=== PATIENT | male | born 1990 | race Caucasian/White ===

== ENCOUNTER 2022-08-01 23:48 | Emergency (ER) | payer BC, OTHER, SELFPAY ==
[2022-08-01 23:49] VITALS: BP 144/91; PULSE 88; RESP 18; TEMP 36.6; O2SAT 100; BMI 28.6
--- NOTE | 2022-08-02 00:17 | EKG12_ITS ---
Test Reason : DYSRHYTHMIA Blood Pressure : / mmHG Vent. Rate : 070 BPM Atrial Rate : 070 BPM P-R Int : 138 ms QRS Dur : 092 ms QT Int : 360 ms P-R-T Axes : 044 033 039 degrees QTc Int : 388 ms Normal sinus rhythm Normal ECG Confirmed by KARLENE CHANEY, ANDRE ([id number]), editor continuity and script KATE ARRIETA ([id number]) on 08/02/2022 9:11:30 AM Referred By: TL Confirmed By:ANDRE SOLER MD
--- NOTE | 2022-08-02 00:18 | EX.ED.DYSGE1 ---
HPI History of Present Illness Chief Complaint: General Illness Informant: patient and spouse/S.O. Narrative Narrative: Presents ED for evaluation not feeling well. Less than 4 hours get ready bed he felt chills and shaky he laid down felt lightheaded and nauseated. He felt better standing up. No urinary symptoms no cough. Nonvaccinated COVID or influenza. States 3 weeks ago home tests COVID. He did start out with chills and developed myalgias congestion all his symptoms lasted 4 days. Denies any current nausea. Denies vomiting or diarrhea. Prior similar symptoms: Yes PFSH PFSH Medical History no medical history Home Medications ondansetron 4 mg disintegrating tablet 4 mg PO Q8H PRN PRN Nausea #10 tabs 08/02/22 [Rx Last Taken Unknown] Allergy/AdvReac Type Severity Reaction Status Date / Time No Known Allergies Allergy Verified 08/01/22 23:51 Social History Smoking Status: Smoker, status unknown tobacco type: smokeless tobacco ROS ROS ED Constitutional Constitutional ED: Denies chills, fever(s) or sweats Eyes Eyes: Denies change in vision ENT ENT ED: Denies dysphagia or sore throat Cardiovascular Cardiovascular: Denies chest pain, leg edema, palpitations or racing heartbeat Respiratory/Chest Respiratory/Chest: Denies cough, dyspnea or dyspnea on exertion Gastrointestinal Gastrointestinal: Denies abdominal pain, diarrhea, nausea or vomiting Genitourinary Genitourinary ED: Denies dysuria, hematuria or urinary frequency Musculoskeletal Musculoskeletal: Denies back pain, extremity pain or neck pain Integumentary Denies rash or wounds Neurologic Neurologic: Denies headache(s), paresthesias or weakness EXAM Physical Exam Const Vital Signs: 08/01/22 23:49 08/01/22 23:57 Temperature 97.9 F Temperature Source Temporal Pulse Rate 88 Respiratory Rate 18 Respiratory Effort Normal Respiratory Pattern Normal Blood Pressure 144/91 H Blood Pressure Mean 108 Pulse Ox 100 Oxygen Delivery Method Room Air Positive well nourished and well developed General Appearance ED: well developed and NAD HEENT Reports moist mucous membranes normocephalic and atraumatic Eyes PERRL, EOMs intact bilaterally and conjunctivae normal General Eye ED: Yes normal appearance of both eyes Neck no lymphadenopathy and supple General: Negative for tenderness Chest Wall Chest: Negative for tenderness Resp normal respiratory effort and normal air movement Effort and Inspection: symmetric chest movement; Negative for respiratory distress Cardio regular rate, regular rhythm and no murmurs Peripheral Pulses: pulses 2+ throughout GI normal to inspection, nondistended, normoactive bowel sounds and non-tender Palpation: Negative for guarding or rebound tenderness present Back/Spine no CVA tenderness and no thoracic nor lumbar tenderness Extremity normal to inspection General Extremety ED: Negative for edema or tenderness General Extremity: Negative for edema Neuro oriented x3 and no sensory deficits noted Sensorium / Orientation: awake and alert Skin no rashes or lesions noted and no wounds MDM MDM MDM Narrative Medical decision making narrative: Interventions / MDM: Differential diagnosis: Dysrhythmia, viral syndrome, electrolyte abnormalities, anemia Diagnosis considered but do not suspect: N/A My EKG interpretation: Sinus rate of 70, no ST or T wave changes QTc 388. Imaging independently reviewed and interpreted by myself: N/A External documents reviewed: N/A Test considered but not ordered:N/A ED course: Patient vital stable currently asymptomatic. Symptoms of chills started 4 hours ago. Discussed with patient possibly COVID 3 weeks ago could have resurgent of symptoms also could be influenza. Discussed and offered retesting however could have persistent positive test. He understands this and declines retesting at this time. As for his near syncope discussed ruling out any cardiac dysrhythmia and electrolyte abnormalities versus anemia. He would like this. EKG obtained sinus rhythm no acute changes. Laboratory studies ordered. 0044: CBC is normal, hemoglobin 15.5. White count 9.8. Platelets 247. Normal electrolytes normal creatinine. Re-evaluation: stable, updated on findings. Outpatient follow-up with return precautions. All questions were answered. Disposition discussed with patient/family/significant other: Patient and significant other Case discussed with consulting clinician: N/A Lab Data Attestation: I reviewed the patient's lab results. Labs: Laboratory Results - last 24 hr 08/02/22 08/02/22 00:25 00:25 WBC 9.8 RBC 5.38 Hgb 15.5 Hct 45.4 MCV 84.4 MCH 28.8 MCHC 34.1 RDW Std Deviation 35.2 RDW Coeff of Shreyas 11.6 Plt Count 247 MPV 9.9 Immature Gran % (Auto) 0.400 Neut % (Auto) 81.0 H Lymph % (Auto) 10.0 L [place] % (Auto) 7.8 Eos % (Auto) 0.5 Baso % (Auto) 0.3 Absolute Neuts (auto) 7.9 H Absolute Lymphs (auto) 0.98 Nucleated RBC % 0 Sodium 138 Potassium 3.9 Chloride 103 Carbon Dioxide 29.0 Anion Gap 6 BUN 11 Creatinine 1.20 Estim Creat Clear Calc 95.00 Est GFR (MDRD) Af Amer 90 Est GFR (MDRD) Non-Af 75 BUN/Creatinine Ratio 9.2 L Glucose 132 H Calcium 9.2 Discharge Plan Triage Chief Complaint: General Illness ED Provider: Abhinav Aquino Dx/Rx/DC Orders Clinical Impression: Near syncope, Acute viral syndrome Instructions: ED Near-Fainting, Uncertain Cause, ED Viral Syndrome (Adult) Prescriptions: New ondansetron [ondansetron] 4 mg tablet,disintegrating 4 mg PO Q8H PRN PRN (Reason: Nausea) Qty: 10 0RF Stand Alone Forms: ED Work / School Excuse Primary Care Provider: Care Physician,No Primary Referrals: Tung Cade MD [Non-Staff] - 3-5 Days if not improving Activity Restrictions/Additional Instructions: Normal EKG, normal labs. Monitor symptoms. Continue oral fluids Zofran as needed. Follow-up with your doctor. Return if worsening symptoms. Disposition Disposition: Home, Self Care
[2022-08-02 00:32] LABS: Absolute Lymphocyte Count 0.98 X10^3/uL (0.83-4.51); Absolute Neutrophil Count 7.9 X10^3/uL (2.0-7.7); Basophil# 0.03 X10^3/uL; Basophil% 0.3 % (0-1); Eosinophil# 0.05 X10^3/uL; Eosinophils% 0.5 % (0-5); Hematocrit 45.4 % (40-54); Hemoglobin 15.5 g/dL (13.0-16.5); Lymphocyte # 0.98 X10^3/ul (0.83-4.51); Mean Corp Hgb Conc 34.1 g/dL (32-36); Mean Corpuscular Hgb 28.8 pg (27.0-32.0); Mean Corpuscular Volume 84.4 fL (80-94); Mean Platelet Vol. 9.9 fl (6.2-12.0); Monocyte# 0.76 X10^3/uL; Monocyte% 7.8 % (0-10); NRBC Flagged by Analyzer 0 % (0-5); Neutrophil # 7.91 X10^3/uL (2.7-7.7); Platelet Count 247 K/mm3 (150-450); RBC Distribution Width CV 11.6 % (11.6-14.6); RBC Distribution Width SD 35.2 fl (35.1-43.9); Red Blood Count 5.38 M/mm3 (4.6-6.2); White Blood Count 9.8 K/mm3 (4.4-11.0)
[2022-08-02 00:46] LABS: Anion Gap 6 (5-15); BUN 11 mg/dL (7-18); BUN/Creat Ratio 9.2 RATIO (10-20); Calcium,Total 9.2 mg/dL (8.5-10.1); Chloride 103 mmol/L (98-107); EST Glomerular Filtration Rate 75 mL/min (>60); Est Glom Filt Rate - Afr Amer 90 mL/min (>60); Glucose 132 mg/dL (74-106); Potassium 3.9 mmol/L (3.5-5.1); Sodium Level 138 mmol/L (136-145)
[2022-08-02 00:48] VITALS: BP 136/91; PULSE 64; RESP 15; O2SAT 97
== END 2022-08-02 00:53 | disposition home or self-care (01) ==
PROVIDERS: Emergency Provider Emergency Medicine; Visit Provider Emergency Medicine
DX: R55 Syncope and collapse (principal); B34.9 Viral infection, unspecified; R68.83 Chills (without fever); Z28.310 Unvaccinated for COVID-19; F17.220 Nicotine dependence, chewing tobacco, uncomplicated
CPT/HCPCS: 80048; 85025; 93005; 99284; A4216

== ENCOUNTER 2022-09-22 20:33 | Emergency (ER) | payer BC, OTHER, SELFPAY ==
[2022-09-22 20:33] VITALS: BP 154/100; PULSE 80; RESP 16; TEMP 36.6; O2SAT 100; BMI 24.8
--- NOTE | 2022-09-22 20:56 | EDS_ITS ---
HPI History of Present Illness Chief Complaint: Palpitations Informant: patient and spouse/S.O. Narrative Narrative: Patient presents with what he thinks might be panic attacks. Patient states he has had more of these episodes over the last year. He was seen couple months ago for this. He had a bad panic attack or what he thinks was on Saturday. He felt palpitations and some pain. He woke up the next morning and felt well. He did have some soreness in his left neck but he states that was only looking to the left. If he looks straight ahead or right he did not. No chest pain trouble breathing since. No syncope or presyncope. No fevers or chills. He has never been diagnosed with anxiety or panic attacks. He has been told his blood pressure runs a little bit high but has never been formally treated. He had a grandfather with heart disease but no first-degree relative. He has had no recent travel surgery immobilization personal or family history of DVT or PE. He has no pleuritic pain hemoptysis leg pain or swelling. He states ever since the episode on Saturday he has just been exhausted. He for stated he had trouble focusing. But then he stated his vision is perfectly clear but he has to look around to different things frequently. He states he does not feel comfortable staring in 1 spot at a time he asked a quick turn and look at other areas. But visually things are clear and normal. PFSH PFSH Home Medications ondansetron 4 mg disintegrating tablet 4 mg PO Q8H PRN PRN Nausea #10 tabs 08/02/22 [Rx Last Taken Unknown] hydroxyzine pamoate 25 mg capsule 50 mg (2 x 25 mg) PO TID PRN PRN Anxiety #20 CAPSULES 09/22/22 [Rx Last Taken Unknown] Allergy/AdvReac Type Severity Reaction Status Date / Time No Known Allergies Allergy Verified 09/22/22 20:33 Social History Smoking Status: Current some day smoker tobacco type: smokeless tobacco ROS ROS ED ROS Narrative A complete review of systems was performed and is negative except as documented in the history of present illness. Some specific details below. Constitutional: No recent fevers or chills. He does have some overall malaise. EYE: No discharge, visual decrease, or pain. See history of present illness. ENT: No difficulty swallowing. No swelling. No pain. No reflux symptoms. CV: See history of present illness. He feels intermittent palpitations but no chest pain now. Respiratory: No dyspnea now. GI: No abdominal pain. No nausea vomiting diarrhea. No blood in stool. : No frequency dysuria or hematuria. Musculoskeletal: No recent trauma. No swelling. Skin: No rash. Nondiaphoretic. Neuro: No weakness or numbness. Endocrine: No polyuria or polydipsia. EXAM Physical Exam Narrative Exam Narrative: CONSTITUTIONAL: Patient is nontoxic in appearance. The patient looks comfortable. Work of breathing looks normal. HEENT: No notable trauma. Mucous membranes moist. EYES: No conjunctival injection. No proptosis. No icterus NECK:No JVD. No stridor. CARDIOVASCULAR: Regular rate. Regular rhythm. No notable murmur. No JVD. Rate is about 80 on the monitor and appears to be sinus. No PVCs seen. RESPIRATORY: No respiratory distress. Breathing is unlabored. No wheezes. No rhonchi. No rales. No pain with a deep breath. No chest wall tenderness. Saturations are normal at 100% on room air showing no hypoxia. GASTROINTESTINAL: Not distended. Bowel sounds are normal. No tenderness. No guarding. No rebound. No palpable mass. No bruit is heard. GENITOURINARY: No tenderness over the bladder. No CVA tenderness. MUSCULOSKELETAL: Atraumatic. No peripheral edema. No cord. No tenderness along the deep venous system. No asymmetry. No distended veins. NEUROLOGICAL: Patient is alert and appropriate. No focal deficit noted. He does have occasionally a slight fine tremor. SKIN: No noted rashes. No diaphoresis. PSYCHIATRIC: Patient is mildly anxious. But he carries on a very normal conversation and is focused. Const Vital Signs: 09/22/22 20:33 09/22/22 21:10 09/22/22 21:10 Temperature 97.9 F Temperature Source Temporal Pulse Rate 80 Respiratory Rate 16 Respiratory Effort Normal Non-Labored Normal Non-Labored Respiratory Pattern Normal Blood Pressure 154/100 H Blood Pressure Mean 118 Pulse Ox 100 MDM MDM MDM Narrative Medical decision making narrative: Patient CBC shows no acute abnormalities. Patient's electrolytes show no acute abnormalities. Troponin is at the lowest measurable level. Patient is rechecked. I do think his symptoms are anxiety. He gets dry mouth difficulty focusing palpitations intermittently. He is then tired afterwards. We will try some hydroxyzine to see if that will help him. He has an appointment with a new primary physician in 10 days. I encouraged him to keep that. We discussed reasons to return. Lab Data Attestation: I reviewed the patient's lab results. Labs: Laboratory Results - last 24 hr 09/22/22 20:58 WBC 8.2 RBC 5.42 Hgb 16.3 Hct 46.7 MCV 86.2 MCH 30.1 MCHC 34.9 RDW Std Deviation 36.6 RDW Coeff of Shreyas 11.7 Plt Count 267 MPV 10.0 Immature Gran % (Auto) 0.400 Neut % (Auto) 66.8 Lymph % (Auto) 21.6 [place] % (Auto) 9.6 Eos % (Auto) 1.1 Baso % (Auto) 0.5 Absolute Neuts (auto) 5.5 Absolute Lymphs (auto) 1.76 Nucleated RBC % 0 Sodium 139 Potassium 3.5 Chloride 103 Carbon Dioxide 31.0 Anion Gap 5 BUN 12 Creatinine 1.21 Estim Creat Clear Calc 93.35 Est GFR (MDRD) Af Amer 89 Est GFR (MDRD) Non-Af 74 BUN/Creatinine Ratio 9.9 L Glucose 99 Calcium 8.8 Troponin I High Sens 3 EKG Initial EKG: Comments: Independent interpretation of the patient's EKG done for palpitations shows normal sinus rhythm with slight respiratory variation. Overall rate is normal at 80. No ventricular ectopy. No acute ST elevation or depression. AK interval, QRS duration and QTc are normal. Discharge Plan Triage Chief Complaint: Palpitations ED Provider: Farhat Green Dx/Rx/DC Orders Clinical Impression: Palpitations, Panic attacks Instructions: ED Palpitations, ED Panic Attack Prescriptions: New hydroxyzine pamoate [hydroxyzine pamoate] 25 mg capsule 50 mg PO TID PRN PRN (Reason: Anxiety) Qty: 20 0RF No Action ondansetron [ondansetron] 4 mg tablet,disintegrating 4 mg PO Q8H PRN PRN (Reason: Nausea) Qty: 10 0RF Primary Care Provider: Adeola Hartman NP Referrals: Care Physician,No Primary [Non-Staff] - Devan,Adeola CIDER PRESS OPERATOR, CIDER PRESS OPERATOR-C [Primary Care Provider] - Keep Chiara appointment Disposition Disposition: Home, Self Care
[2022-09-22 21:16] LABS: Absolute Lymphocyte Count 1.76 X10^3/uL (0.83-4.51); Absolute Neutrophil Count 5.5 X10^3/uL (2.0-7.7); Basophil# 0.04 X10^3/uL; Basophil% 0.5 % (0-1); Eosinophil# 0.09 X10^3/uL; Eosinophils% 1.1 % (0-5); Hematocrit 46.7 % (40-54); Hemoglobin 16.3 g/dL (13.0-16.5); Lymphocyte # 1.76 X10^3/ul (0.83-4.51); Lymphocyte % 21.6 % (19-41); Mean Corp Hgb Conc 34.9 g/dL (32-36); Mean Corpuscular Hgb 30.1 pg (27.0-32.0); Mean Corpuscular Volume 86.2 fL (80-94); Monocyte# 0.78 X10^3/uL; Monocyte% 9.6 % (0-10); NRBC Flagged by Analyzer 0 % (0-5); Neutrophil # 5.45 X10^3/uL (2.7-7.7); Neutrophil % 66.8 % (47-70); Platelet Count 267 K/mm3 (150-450); RBC Distribution Width CV 11.7 % (11.6-14.6); RBC Distribution Width SD 36.6 fl (35.1-43.9); Red Blood Count 5.42 M/mm3 (4.6-6.2); White Blood Count 8.2 K/mm3 (4.4-11.0)
[2022-09-22 21:29] LABS: Anion Gap 5 (5-15); BUN 12 mg/dL (7-18); BUN/Creat Ratio 9.9 RATIO (10-20); Calcium,Total 8.8 mg/dL (8.5-10.1); Chloride 103 mmol/L (98-107); Creatinine, Serum 1.21 mg/dL (0.70-1.30); EST Glomerular Filtration Rate 74 mL/min (>60); Est Glom Filt Rate - Afr Amer 89 mL/min (>60); Estimated Creatinine Clearance 93.35 ml/min; Glucose 99 mg/dL (74-106); Potassium 3.5 mmol/L (3.5-5.1); Sodium Level 139 mmol/L (136-145); Troponin-I HS 3 pg/mL (3.0-78.0)
== END 2022-09-22 22:35 | disposition home or self-care (01) ==
PROVIDERS: Emergency Provider Emergency Medicine; PCP Nurse Practitioner Family; Visit Provider Emergency Medicine
DX: F41.0 Panic disorder [episodic paroxysmal anxiety] (principal); R00.2 Palpitations; F17.220 Nicotine dependence, chewing tobacco, uncomplicated; Z79.899 Other long term (current) drug therapy
CPT/HCPCS: 80048; 84484; 85025; 93005; 99283; A4216

== ENCOUNTER → 2024-03-17 | Outpatient (CLI) | payer OTHER, SELFPAY ==
[2024-03-17 17:02] LABS: Absolute Lymphocyte Count 2.02 X10^3/uL (0.83-4.51); Absolute Neutrophil Count 5.2 X10^3/uL (2.0-7.7); Basophil# 0.05 X10^3/uL; Basophil% 0.6 % (0-1); Eosinophil# 0.17 X10^3/uL; Hematocrit 44.2 % (40-54); Hemoglobin 14.8 g/dL (13.0-16.5); Lymphocyte # 2.02 X10^3/ul (0.83-4.51); Lymphocyte % 23.9 % (19-41); Mean Corp Hgb Conc 33.5 g/dL (32-36); Mean Corpuscular Volume 86.7 fL (80-94); Mean Platelet Vol. 9.9 fl (6.2-12.0); Monocyte# 0.96 X10^3/uL; Monocyte% 11.4 % (0-10); NRBC Flagged by Analyzer 0 % (0-5); Neutrophil # 5.21 X10^3/uL (2.7-7.7); Neutrophil % 61.7 % (47-70); Platelet Count 289 K/mm3 (150-450); RBC Distribution Width CV 11.9 % (11.6-14.6); RBC Distribution Width SD 37.7 fl (35.1-43.9); White Blood Count 8.4 K/mm3 (4.4-11.0)
[2024-03-17 17:39] LABS: ALB/GLOB Ratio 1.1 RATIO (0.9-2.4); AST(SGOT) 84 U/L (15-37); Alanine Aminotransfer ALT/SGPT 64 U/L (16-61); Albumin, Serum 3.8 g/dL (3.2-5.0); Alkaline Phosphatase 82 U/L (45-117); Anion Gap 5 (5-15); BUN 15 mg/dL (7-18); Calcium,Total 8.7 mg/dL (8.5-10.1); Chloride 103 mmol/L (98-107); Creatinine, Serum 1.25 mg/dL (0.70-1.30); EST Glomerular Filtration Rate 71 mL/min (>60); Est Glom Filt Rate - Afr Amer 85 mL/min (>60); Globulin 3.5 g/dL (2.2-4.2); Glucose 94 mg/dL (74-106); Potassium 4.1 mmol/L (3.5-5.1); Protein, Total 7.3 g/dL (6.4-8.2); Sodium Level 137 mmol/L (136-145); Thyroid Stim Hormone (TSH) 0.906 uIU/mL (0.358-3.740)
== END | disposition home or self-care (01) ==
LOC: VSLAB 16:42
PROVIDERS: PCP Nurse Practitioner Family; Visit Provider Nurse Practitioner Family
DX: I10 Essential (primary) hypertension (principal)
CPT/HCPCS: 36415; 80053; 84443; 85025

== ENCOUNTER 2024-05-15 09:08 | Day surgery (SDC) | payer OTHER, SELFPAY ==
[2024-05-15] VITALS (9 sets, daily range): BP systolic 89–135; BP diastolic 54–80; PULSE 64–83; RESP 16–20; TEMP 36.3–36.7; O2SAT 95–100; BMI 25.4
--- NOTE | 2024-05-15 09:28 | PCM.PRE.AN2 ---
ASA Classification* ASA Classification ASA Classification: 2 Assessment & Plan Anesthesia* Anesthesia Assessment Anesthesia Assessment: Discussed sedation and/or anesthesia options, risks, benefits, and alternatives with patient/parents/legal guardian/POA. Questions invited. The patient/parents/legal guardian/POA seems to understand and agrees to proceed with anesthesia plan. Reviewed the physical assessment, medical history, allergy history and patient home medications list prior to surgery/procedure/anesthetic and documented any changes. Performed airway and anesthesia risk assessments. Anesthesia Type Anesthesia Type: MAC Anesthesia Focused Assessment* Temperature: 97.9 F Pulse Rate: 83 Blood Pressure: 135/79 Respiratory Rate: 20 Pulse Ox: 100 Airway Assessment Mouth opens: >3 cm Mallampati Score: II Focused Labs Anesthesia Preop lab: CBC WBC 8.4 K/mm3 (4.4-11.0) 03/17/24 16:43 03/17/24 RBC 5.10 M/mm3 (4.6-6.2) 03/17/24 16:43 03/17/24 Hgb 14.8 g/dL (13.0-16.5) 03/17/24 16:43 03/17/24 Hct 44.2 % (40-54) 03/17/24 16:43 03/17/24 Plt Count 289 K/mm3 (150-450) 03/17/24 16:43 03/17/24 CHEMISTRY Potassium 4.1 mmol/L (3.5-5.1) 03/17/24 16:43 03/17/24 Sodium 137 mmol/L (136-145) 03/17/24 16:43 03/17/24 BUN 15 mg/dL (7-18) 03/17/24 16:43 03/17/24 Creatinine 1.25 mg/dL (0.70-1.30) 03/17/24 16:43 03/17/24 Glucose 94 mg/dL (74-106) 03/17/24 16:43 03/17/24 TSH 0.906 uIU/mL (0.358-3.740) 03/17/24 16:43 03/17/24 COAG Pre-Assessment Diagnosis/Proposed Procedure Planned Operative Procedure(s): CSCOPE Anesthesia History Anesthesia History - superintendent meter tests: Anesthesia History - superintendent meter tests Hx Hospitalization No 05/14/24 08:46 Any Problems With Anesthesia No 05/14/24 08:46 Cholinesterase deficiency No 05/14/24 08:46 You/Your Family Experience No 05/14/24 08:46 fever (hyperthermia) with Relationship Recent Exposure to Contagious No 05/15/24 09:22 Disease Does patient have nerve No 05/14/24 08:46 stimulator Patient instructed to have device shut off --Does patient have Pacemaker No 05/15/24 09:22 or ICD? When Was Last Pacemaker Check QUESTION #4 FULL TEXT: You/Your Family Experience fever (hyperthermia) with Anesthesia Last Oral Intake Last Oral intake: Last Oral Intake NPO since 21:30 05/15/24 09:22 Meds taken in AM with sips of water? Meds patient instructed to take am of surgery PONV PONV - superintendent meter tests: PONV - superintendent meter tests Female No 05/14/24 08:46 HX of Motion Sickness Yes 05/14/24 08:46 HX of N/V After Surgery No 05/14/24 08:46 Non-Smoker Yes 05/14/24 08:46 Duration of Surgery greater No 05/14/24 08:46 than 60 minutes Number of Risk Factors 2 05/14/24 08:46 PONV Score Moderate Risk 05/14/24 08:46 Height & Weight Height & Weight: Anesthesia: Height & Weight Height 5 ft 11 in 05/15/24 09:22 Weight: 83 kg 05/15/24 09:22 Body Mass Index (BMI) 25.4 05/15/24 09:22 Respiratory Assessment Respiratory Assessment - superintendent meter tests: Respiratory Tract Infection Hx - superintendent meter tests Hx Respiratory Tract Infection No 05/14/24 08:46 STOP Sleep Apnea STOP Sleep Apnea - superintendent meter tests: STOP Sleep Apnea - superintendent meter tests Hx Hypertension Yes: CONTROLLED WITH MED 05/14/24 08:46 Hx Sleep Apnea No 05/14/24 08:46 CPAP BIPAP Do you snore loudly (louder No 05/14/24 08:46 than talking or can be heard Do you often feel tired/ No 05/14/24 08:46 fatigued/ sleepy during daytime? Has anyone observed you stop No 05/14/24 08:46 breathing during sleep? STOP Results Negative 05/14/24 08:46 QUESTION #5 FULL TEXT : Do you snore loudly (louder than talking or can be heard through closed doors)? Tobacco Use History Tobacco Use History - superintendent meter tests: Tobacco Use History - superintendent meter tests Tobacco Use Smoking Status Former smoker 05/14/24 08:46 Hx Tobacco Use No: QUIT SMOKELESS TOBACCO 05/14/24 08:46 2023 Years Smoking Packs Smoked per Day Smoking Cessation Date was Yes - quit smoking within 15 05/14/24 08:46 within the last 15 years years Hx Smoking Cessation Date 03/11/21 05/14/24 08:46 Hx Smoking Cessation Counseling Hematologic Medial History Hematologic Hx - superintendent meter tests: Hematologic Medical Hx - train gateman Hx of Blood Transfusion No 05/14/24 08:46 Hx of Transfusion in last 3 No 05/14/24 08:46 Months Date of Last Transfusion (if within last 3 months) Ever experience any problems No 05/14/24 08:46 with transfusion(s)? Specify any problems Hx of Preganancy in last 3 N/A 05/14/24 08:46 Months Nurse Filling Out Transfusion NBUCHER 05/14/24 08:46 & Questions: Date: 05/14/24 05/14/24 08:46 Time: 08:48 05/14/24 08:46 Patient unable to answer at this time (ie. confused, unrespo /Reproduction History /Reproductive History - superintendent meter tests: /Reproductive Hx- superintendent meter tests Hx Now No 05/14/24 08:46 Gestational Age (in weeks): EDC: Hx Hx Para Hx Section SAB No 05/14/24 08:46 PFSH Medical History Wears dentures Wears glasses Anxiety Hypertension Former smokeless tobacco use Gastric reflux Former smoker Family history of colon cancer Rectal bleeding Home Medications ?Medication ?Instructions ?Recorded ?Last Taken ?Type lisinopril 20 mg tablet 20 mg PO DAILY 05/14/24 05/14/24 History Allergy/AdvReac Type Severity Reaction Status Date / Time No Known Allergies Allergy Verified 05/15/24 09:19 Surgical History History of foot surgery Social History Smoking Status: Former smoker Review of Systems (Anesthesia) ROS Narrative System reviewed and no additional complaints, except as documented.
--- NOTE | 2024-05-15 11:45 | PCM.HP.STD ---
HPI - General General Date of Admission: 05/15/24 Date of Service: 05/15/24 Chief Complaint: Screening colonoscopy HPI Narrative MATTHEW HOWE, is a 33 M who presents for screening colonoscopy. He has a family history of colon polyps and colon cancer. His mom has had colon polyps and his dad developed colon cancer in his late 40s. Patient wishes to be proactive and was scheduled for colonoscopy. He denies any significant GI issues or problems other than some occasional blood with wiping during bowel movements. [facility] Medical History Wears dentures Wears glasses Anxiety Hypertension Former smokeless tobacco use Gastric reflux Former smoker Family history of colon cancer Rectal bleeding Home Medications ?Medication ?Instructions ?Recorded ?Last Taken ?Type lisinopril 20 mg tablet 20 mg PO DAILY 05/14/24 05/14/24 History Allergy/AdvReac Type Severity Reaction Status Date / Time No Known Allergies Allergy Verified 05/15/24 09:19 Surgical History History of foot surgery Social History Smoking Status: Former smoker Vital Signs Vital Signs Vital Signs: 05/15/24 09:22 05/15/24 09:22 05/15/24 09:28 Temperature 97.9 F 97.9 F Temperature Source Temporal Pulse Rate 83 83 Respiratory Rate 20 H 20 H Respiratory Pattern Normal Blood Pressure 135/79 H 135/79 H Blood Pressure Mean 97 Blood Pressure Source Monitor Blood Pressure Position Semi-Fowlers Blood Pressure Location Left Arm Pulse Ox 100 100 Oxygen Delivery Method Room Air Weight Weight: 182 lb 15.739 oz Body Mass Index (BMI) 25.4 Physical Exam Const alert, oriented x3 and no apparent distress HEENT normocephalic Eyes PERRL General Eye: normal appearance of both eyes Neck full ROM Assessment & Plan Assessment/Plan (1) Rectal bleeding: PLAN: Plan The patient is a 33-year-old male with family history of colon polyps and colon cancer. He has had some periodic rectal bleeding. He has been recommended to undergo colonoscopy. We discussed the details of the planned procedure and he wishes to proceed. This will begin momentarily
--- NOTE | 2024-05-15 12:22 | OP.CCLET_ITS ---
05/15/2024 Adeola Hartman [facility], [employer] Re : Colonoscopy procedure for Yasir Richardsr Devan This procedure was performed on Wednesday, May 15, 2024. My impressions and recommendations are as follows: Impressions : - Internal hemorrhoids. - The entire examined colon is normal on direct and retroflexion views. - No specimens collected. Recommendations : - Discharge patient to home (ambulatory). - High fiber diet indefinitely. - Repeat colonoscopy in 5 years for screening purposes. - Return to my office PRN. - Continue present medications. My findings are described in the full procedure note, which is enclosed. If I can be of further assistance, please feel free to contact me at . Sincerely, Angel Hutchison MD 05/15/2024 12:21:33 PM This report has been signed electronically.
--- NOTE | 2024-05-15 12:22 | OP.COLON_ITS ---
Patient Name: Yasir Aguilar Procedure Date: 05/15/2024 11:26 AM Date of : 1990 Age: 33 Procedure: Colonoscopy Indications: Screening in patient at increased risk: Family history of 1st-degree relative with colorectal cancer before age 60 years Providers: Angel Hutchison MD Referring MD: Angel Hutchison MD Medicines: Monitored Anesthesia Care Patient Profile: Refer to note in patient chart for documentation of history and physical. Last Colonoscopy: none. The patient's first colonoscopy is today. Complications: No immediate complications. Estimated blood loss: None. Procedure: Pre-Anesthesia Assessment: - Prior to the procedure, a History and Physical was performed, and patient medications and allergies were reviewed. The patient's tolerance of previous anesthesia was also reviewed. The risks and benefits of the procedure and the sedation options and risks were discussed with the patient. All questions were answered, and informed consent was obtained. Prior Anticoagulants: The patient has taken no anticoagulant or antiplatelet agents. ASA Grade Assessment: II - A patient with mild systemic disease. After reviewing the risks and benefits, the patient was deemed in satisfactory condition to undergo the procedure. After I obtained informed consent, the scope was passed under direct vision. Throughout the procedure, the patient's blood pressure, pulse, and oxygen saturations were monitored continuously. The colonoscope was introduced through the anus and advanced to the cecum, identified by appendiceal orifice and ileocecal valve. The ileocecal valve, appendiceal orifice, and rectum were photographed. The entire colon was well visualized. The colonoscopy was performed without difficulty. The patient tolerated the procedure well. The quality of the bowel preparation was adequate. Moderate Sedation: See the other procedure note for documentation of moderate sedation with intraservice time. Scope In: 11:56:01 AM Scope Withdrawal Time 0 hours 6 minutes 21 seconds Scope Out: 12:14:29 PM Total Procedure Duration Time 0 hours 18 minutes 28 seconds Findings: The perianal and digital rectal examinations were normal. Internal hemorrhoids were found during endoscopy. The hemorrhoids were moderate. The entire examined colon appeared normal on direct and retroflexion views. Impression: - Internal hemorrhoids. - The entire examined colon is normal on direct and retroflexion views. - No specimens collected. Recommendation: - Discharge patient to home (ambulatory). - High fiber diet indefinitely. - Repeat colonoscopy in 5 years for screening purposes. - Return to my office PRN. - Continue present medications. Procedure Code(s): --- Professional --- G0105, Colorectal cancer screening; colonoscopy on individual at high risk Diagnosis Code(s): --- Professional --- K64.8, Other hemorrhoids Z80.0, Family history of malignant neoplasm of digestive organs CPT copyright 2021 [employer]. All rights reserved. The codes documented in this report are preliminary and upon warehouse record clerk review may be revised to meet current compliance requirements. Angel Hutchison MD 05/15/2024 12:21:33 PM This report has been signed electronically. Number of Addenda: 0 Note Initiated On: 05/15/2024 11:26 AM
--- NOTE | 2024-05-15 12:30 | PCM.POST.ANE ---
Anesthesia: Postop Eval I Current Vital Signs Temperature: 98 F Pulse Rate: 76 Blood Pressure: 89/54 Respiratory Rate: 18 Pulse Ox: 96 Oxygen Delivery Method: Room Air Assessment Airway patent: Yes Spontaneous unlabored respirations: Yes Mental status: Asleep nausea: No Vomiting: No Anesthesia Complication: No Fluid Hydration Crystalloid volume administer (ml): 50 Total IV fluid infused: 50 Progress Note Anesthesia document: Postop Eval 1 completed: Yes
--- NOTE | 2024-05-15 12:53 | PCM.POSTANE2 ---
Anesthesia Postop Eval I Sum Postop Eval Completion status Anesthesia document: Postop Eval 1 completed: Yes Anesthesia Postop Eval I Summary Anesthesia Postop Eval I Summary: Anesthesia Postop Eval I: Assessment Summary Airway patent Yes 05/15/24 12:31 [email or web address] Spontaneous unlabored Yes 05/15/24 12:31 [email or web address] respirations Mental status Asleep 05/15/24 12:31 [email or web address] nausea No 05/15/24 12:31 [email or web address] Vomiting No 05/15/24 12:31 [email or web address] Anesthesia Postop Eval I: Fluid Summary Crystalloid volume administer 50 05/15/24 12:31 [email or web address] (ml) Colloids volume administered ( ml) Blood Product volume administered (ml) Total IV fluid infused 50 05/15/24 12:31 [email or web address] Anesthesia Postop Eval I: Summary Notes Anesthesia Complication No 05/15/24 12:31 [email or web address] Anesthesia Complication Comment: Post-operative progress note Anesthesia: Postop Eval II Evaluation Mental status: Awake Pain Level: 0 nausea: No Vomiting: No
[2024-05-15] MEDS: Acetaminophen 325 MG Tablet 650 MG PO (12:59)
== END 2024-05-15 13:22 | disposition home or self-care (01) ==
LOC: EN 09:09 → AC 09:10
PROVIDERS: PCP Nurse Practitioner Family; Referring Provider Surgery; Visit Provider Surgery
PROC: 0DJD8ZZ Inspection of Lower Intestinal Tract, Via Natural or Artificial Opening Endoscopic (ICD-10-PCS; CPT 45378; principal; 2024-05-15 10:25)
DX: Z12.11 Encounter for screening for malignant neoplasm of colon (principal); K64.8 Other hemorrhoids; K62.5 Hemorrhage of anus and rectum; I10 Essential (primary) hypertension; Z79.899 Other long term (current) drug therapy; Z87.891 Personal history of nicotine dependence; Z80.0 Family history of malignant neoplasm of digestive organs; Z83.719 Family history of colon polyps, unspecified
CPT/HCPCS: 45378; A4216; J2405